=== PATIENT | male | born 1945 | race Two or more races ===

== ENCOUNTER 2019-06-18 02:11 | Inpatient (IN) | payer OTHER ==
[~2019-06-18] VITALS: Ht 165.1 cm; Wt 72.7 kg
[~2019-06-18 02:11] MED LIST: GABA300C OR; GLIP5TAB12 PO; LACT10SO3 PO; LEVE750T15 PO; LORA1TAB23 PO; METF-916 PO; PHEN100C70 OR
[2019-06-18] MEDS ORDERED: SODIUM CHLORIDE 0.9% 3,000 ML IV ONE (02:30)
[2019-06-18] MEDS ORDERED: ACETAMINOPHEN 325 MG TAB PO ONE (02:45)
[2019-06-18] MEDS ORDERED: ONDANSETRON HCL 4 MG/2 ML VIAL ONE (02:56)
[2019-06-18] MEDS ORDERED: MORPHINE SULFATE 4 MG/ML SYR/VIAL ONE (02:56)
[2019-06-18] MEDS ORDERED: ONDANSETRON HCL 4 MG/2 ML VIAL IV ONE (03:00)
[2019-06-18] MEDS ORDERED: MORPHINE SULF INJ 2 MG/ML SYRINGE 1ML IV ONE (03:00)
[2019-06-18 03:20] LABS: Basophils # (auto) 0 10 ^3/uL (0-0.2); Basophils % (auto) 0.4 % (0.0-2.0); Eosinophils # (auto) 0 10 ^3/uL (0-0.8); Eosinophils % (auto) 0.3 % (0.0-7.0); Hematocrit 47.3 % (41.0-53.0); Lymphocytes # (auto) 1.3 10 ^3/uL (0.4-5.4); Lymphocytes % (auto) 12.7 % (10.0-50.0); Mean Corpuscular Hemoglobin 31.3 pg (28.0-32.0); Mean Corpuscular Hgb Conc. 33.8 g/dL (32.0-36.0); Mean Corpuscular Volume 92.7 fL (80.0-100.0); Monocytes # (auto) 1.3 10 ^3/uL (0-1.3); Monocytes % (auto) 12.8 % (0.0-12.0); Neutrophils # (auto) 7.4 10 ^3/uL (1.6-8.6); Neutrophils % (auto) 73.8 % (37.0-80.0); Nucleated Red Blood Cells % 0.2 %; Platelet Count (auto) 254 10^3/uL (140-450); Red Cell Distribution Width 14.3 % (11.8-14.3)
[2019-06-18 03:36] LABS: Urine Bacteria NONE SEEN /hpf (None Seen); Urine Blood TRACE /uL (Negative); Urine Specific Gravity 1.027 (1.001-1.035); Urine WBC 4 /hpf (0 - 3)
[2019-06-18 03:39] LABS: INR 1.09 (0.9-1.15); Partial Thromboplastin Time 28.2 sec (23.64-32.05)
[2019-06-18 03:40] LABS: Lactic Acid w/Reflex 2.9 mmol/L (0.4-2.0)
[2019-06-18] MEDS ORDERED: levoFLOXacin 750MG 150 ML IV ONE (04:00)
[2019-06-18] MEDS ORDERED: SODIUM CHLORIDE 0.9% 1,000 ML IV SCH (05:23)
[2019-06-18] MEDS ORDERED: NITROGLYCERIN 0.4 MG SL TAB SL PRN (05:30)
[2019-06-18] MEDS ORDERED: MORPHINE SULF INJ 2 MG/ML SYRINGE 1ML IV PRN (05:30)
[2019-06-18] MEDS ORDERED: ACETAMINOPHEN 500 MG TAB PO PRN (05:30)
[2019-06-18] MEDS ORDERED: ALBUTEROL SULF HFA 90MCG INH 200DOSE IN SCH (06:00)
[2019-06-18] MEDS ORDERED: HYDROcodone-ACET 5/325MG TAB ONE (06:12)
[2019-06-18] MEDS ORDERED: HYDROcodone-ACET 5/325MG TAB PO PRN (06:15)
[2019-06-18] MEDS: GABAPENTIN 300 MG CAP PO SCH ×3 (06:17→21:35)
[2019-06-18] MEDS: PHENYTOIN SODIUM 100 MG CAP PO SCH ×3 (06:17→21:34)
--- NOTE | 2019-06-18 07:05 | NUR ---
Telemetry admit from ER KATIUSKA FAITH admitted to Telemetry unit after SBAR received. Patient oriented to MIGUEL ELLER, RN primary RN, unit, room, bed, and unit policies regarding patient care and visiting hours. Patient now on continuous telemetry monitoring, tele box #8 and telemetry reading on arrival to unit is SR. Patient placed on bedside oxygen, weighed by bedscale and encouraged to call if they need something. All questions and concerns addressed, patient verbalized understanding.
[2019-06-18 07:10] VITALS: BP 133/70
[2019-06-18] MEDS: cefTRIAXone 1GM/50ML D5W 50 ML IV SCH (09:50)
[2019-06-18] MEDS: ZINC SULFATE 220mg CAP or TAB PO SCH (09:51)
[2019-06-18] MEDS: levETIRAcetam 500 MG TAB PO SCH ×2 (09:53→21:35)
[2019-06-18] MEDS: ENOXAPARIN SOD 40 MG/0.4 ML SYRINGE SC SCH (09:54)
[2019-06-18] MEDS: CHOLECALCIFEROL (VITD3) 1,000UNIT=25mCg TAB PO SCH (09:54)
[2019-06-18] MEDS ORDERED: ASCORBIC ACID 1,000 MG TAB PO SCH (10:00)
[2019-06-18] MEDS ORDERED: AZITHROMYCIN 500MG/D5WorNS 250ml IV SCH (10:00)
[2019-06-18 11:31] LABS: Amylase 22 U/L (25-115); Lipase 64 U/L (73-393)
[2019-06-18 11:32] LABS: Magnesium 1.8 mg/dL (1.6-2.6)
[2019-06-18 11:43] LABS: Lactate Dehydrogenase 235 U/L (87-241)
[2019-06-18 11:49] LABS: CRP High Sensitivity > 19.0 mg/dL (< 0.3)
[2019-06-18 12:05] LABS: Anion Gap 10 (5-15); Carbon Dioxide 22 mmol/L (21-32); Chloride 98 mmol/L (98-107); Potassium 4.2 mmol/L (3.5-5.1); Sodium 130 mmol/L (136-145)
[2019-06-18 12:06] LABS: Alanine Aminotransferase 68 U/L (16-61); Albumin 2.5 g/dL (3.4-5.0); Alkaline Phosphatase 112 U/L (45-117); Aspartate Aminotransferase 79 U/L (15-37); BUN/Creatinine Ratio 8.7; Bilirubin, Total 0.8 mg/dL (0.2-1.0); Blood Urea Nitrogen 9 mg/dL (7-18); Calcium 7.9 mg/dL (8.5-10.1); GFR African American 92 mL/min; GFR Non-African American 76 mL/min; Total Protein 7.1 g/dL (6.4-8.2)
[2019-06-18 12:11] LABS: Glucose 455 mg/dL (74-106)
--- NOTE | 2019-06-18 12:25 | NUR ---
PAGED DR. SCRUGGS TO NOTIFY OF PATIENTS CRITICAL BLOOD SUGAR OF 455
--- NOTE | 2019-06-18 12:31 | NUR ---
YOBANI FROM LAB AND CALLED CRITICAL BLOOD SUGAR OF 455 WILL NOTIFY
[2019-06-18] MEDS ORDERED: DEXTROSE (50%) 50ML SYRG IV PRN ×2 (12:45→13:30)
[2019-06-18 13:00] VITALS: BP 109/74
--- NOTE | 2019-06-18 13:20 | NUR ---
DR. SCRUGGS CALLED BACK, ORDERS RECEIVED, WILL DOCUMENT AND CARRY OUT
[2019-06-18] MEDS ORDERED: InsuLIN REG 1unit/0.01ml Soln (100units/ml) SC ONE (14:00)
--- NOTE | 2019-06-18 14:00 | NUR ---
ATTEMPTED TO PERFORM MED RECONCILIATION. PATIENT UNABLE TO RECALL ANY MED NAMES. PATIENT DID NOT KNOW DAUGHTERS PHONE NUMBER, PRIMARY RN SAMANTHA UNAWARE OF DAUGHTER PHONE NUMBER. UNABLE TO TO COMPLETE MED REC AT THIS TIME. WILL INFORM PRIMARY RN
--- NOTE | 2019-06-18 14:48 | NUR ---
CALLED TO GIVE SKINNY GONZALEZ REPORT SHE IS NOT AVAILABLE WILL CALL BACK
[2019-06-18] MEDS ORDERED: IODIXANOL 320MG/ML 100ML BTL IV ONE (15:36)
--- NOTE | 2019-06-18 15:40 | NUR ---
GAVE COMPLETE SBAR TO SKINNY GONZALEZ TO TRANSFER CARE.
--- NOTE | 2019-06-18 15:54 | NUR ---
[employer] TRANSPORTED PATIENT TO ROOM 212 B, PATIENT HAS NO SOB, OR PAIN NOTED AT THIS TIME.
--- NOTE | 2019-06-18 16:05 | NUR ---
Received Patient Assumed care patient currently in bed. No tele monitor present Heart center notified and tele box has been requested. No pain reported at this moment.
[2019-06-18 17:00] VITALS: BP 99/59
[2019-06-18] MEDS ORDERED: ACCU-CHEK COMFORT CURVE STRIP VI SCH (17:00)
[2019-06-18] MEDS: ACCU-CHEK COMFORT CURVE STRIP VI SCH ×2 (17:00→22:13)
[2019-06-18] MEDS: InsuLIN REG 1unit/0.01ml Soln (100units/ml) SC SCH (17:00)
[2019-06-18] MEDS ORDERED: InsuLIN REG 1unit/0.01ml Soln (100units/ml) SC SCH ×2 (17:00→22:00)
--- NOTE | 2019-06-18 17:00 | NUR ---
awaiting telebox from monitor center
--- NOTE | 2019-06-18 17:50 | NUR ---
Patient off unit down to radiology
--- NOTE | 2019-06-18 18:00 | NUR ---
tele box # 30 received.
--- NOTE | 2019-06-18 19:10 | NUR ---
Received report from the Day Shift RN Cristin. Pt. in bed resting, alert, awake, oriented x 2 , forgetful due to the history of brain tumor. Pt. resting calm and quiet Pt. was a transfer pt. from the [facility]. Tele Box # 30 will be placed/started on his chest.
--- NOTE | 2019-06-18 19:30 | NUR ---
Pt. on Tele Box # 30 , SR @ the 80's @ the monitor. No s/s of chest pain or chest discomfort. Pt. in Room Air, lungs are diminished to clear. No s/s of sob or dyspnea. Breathing regular and unlabored. Pt. resting in bed and keep safe and warm. Call-light within reach. Bed alarms on with the bed locked in low position.
--- NOTE | 2019-06-18 19:49 | NUR ---
Pt. SR @ 87 with PVC's @ the Tele # 30. Pt. denies chest pain and denies chest discomfort. No verbalization of pain and pt. is calm and resting in bed. Pt. can ambulate to the BR with min. to mod. assist due to unsteady gait.
--- NOTE | 2019-06-18 20:00 | NUR ---
Assessment done and completed.
--- NOTE | 2019-06-18 20:30 | NUR ---
Pt. provided assistance to the BR, unsteady with gait and generally weak. BM x 1 diarrhea look stool. Washed and cleansed by the nsg. staff and returned to the bed safely. Keep pt. clean, dry and safe in bed. Bed alarms on. F/C placed below the bed draining yellow sandhya urine.
--- NOTE | 2019-06-18 21:34 | NUR ---
Due meds. given/administered to the pt. Pt. provided explanation to the use/benefits of the meds. as scheduled @ around this time. Pt. verbalized partial understanding and will reenforce health teachings during medication time q shift.
[2019-06-18 22:00] VITALS: BP 126/77
[2019-06-18] MEDS ORDERED: hydrOXYchloroQUINE SULFATE 200 MG TAB PO SCH (22:00)
--- NOTE | 2019-06-18 22:11 | NUR ---
Accucheck taken with result of BS = 282. Pt. made aware of the result.
--- NOTE | 2019-06-18 22:19 | NUR ---
Pt. given 6 units of Regular Human Insulin SQ @ the [facility] for BS = 282 - see Emar.
--- NOTE | 2019-06-18 22:28 | NUR ---
Pt. given [place] 1 tab. for moderate abdominal pain, aching and hurting about 6/10 scale. Pt. provided psychological support.
--- NOTE | 2019-06-18 23:28 | NUR ---
Pt. comfortable @ this time with mild facial grimacing about 2/10 pain scale, tolerable now. Kept. pt. safe and nursing home director bed. Call-light within reach. Pt. still SR @the monitor Tele # 30 @ the 70's to 80's.
--- NOTE | 2019-06-19 02:00 | NUR ---
Pt. calm and sleeping well. Slept undisturbed. SR @ the monitor.
--- NOTE | 2019-06-19 04:00 | NUR ---
Pt. still sleeping undisturbed. No s/s of pain or discomfort. SR @ the 80's to 90's @ the monitor # 30.
[2019-06-19 05:00] VITALS: BP 115/69
[2019-06-19] MEDS: PHENYTOIN SODIUM 100 MG CAP PO SCH (06:09)
[2019-06-19] MEDS: GABAPENTIN 300 MG CAP PO SCH (06:10)
[2019-06-19] MEDS: ACCU-CHEK COMFORT CURVE STRIP VI SCH ×2 (06:13→12:10)
--- NOTE | 2019-06-19 06:13 | NUR ---
Accucheck taken with result of BS = 194 .
[2019-06-19] MEDS: InsuLIN REG 1unit/0.01ml Soln (100units/ml) SC SCH ×2 (06:48→12:31)
--- NOTE | 2019-06-19 06:48 | NUR ---
Pt. given 3 units of Regular Human Insulin per s/s SQ @ the [facility] for BS = 194 - see Emar.
--- NOTE | 2019-06-19 07:15 | NUR ---
SHIFT REPORT RECEIVED SHIFT REPORT FROM NUVIA GONZALEZ. PATIENT RESTING IN BED AWAKE, NO COMPLAINTS OF PAIN, CP, OR SOB.
[2019-06-19 09:00] VITALS: BP 108/70
[2019-06-19] MEDS: ENOXAPARIN SOD 40 MG/0.4 ML SYRINGE SC SCH (09:08)
[2019-06-19] MEDS: cefTRIAXone 1GM/50ML D5W 50 ML IV SCH (09:08)
[2019-06-19] MEDS: CHOLECALCIFEROL (VITD3) 1,000UNIT=25mCg TAB PO SCH (09:09)
[2019-06-19] MEDS: ZINC SULFATE 220mg CAP or TAB PO SCH (09:09)
[2019-06-19] MEDS: levETIRAcetam 500 MG TAB PO SCH (09:10)
[2019-06-19] MEDS ORDERED: AZITHROMYCIN 500MG/ 250ML 250 ML IV SCH (10:00)
[2019-06-19] MEDS ORDERED: hydrOXYchloroQUINE SULFATE 200 MG TAB PO SCH (10:00)
[2019-06-19] MEDS ORDERED: LORazepam 0.5 MG TAB PO ONE ×2 (11:45→13:00)
[2019-06-19] MEDS ORDERED: ASCORBIC ACID 500 MG TAB PO SCH (11:47)
--- NOTE | 2019-06-19 12:22 | NUR ---
MANUAL HEART RATE MANUAL HEART RATE 105BPM, IRREGULAR RHYTHM BY APICAL PULSE.
[2019-06-19 12:53] VITALS: BP 111/55
--- NOTE | 2019-06-19 13:21 | NUR ---
PATIENTS HEART RATE AFTER SECOND DOSE/ADMISTATION OF ATIVAN 0.5MG, HEART RATE IS RETURNING TO 110'S, PATIENT DOES NOT HAVE C/O CHEST PAIN OR SOB. WILL START DISCHARGE. DR. CORTES WILL BE NOTIFIED.
--- NOTE | 2019-06-19 14:05 | NUR ---
Velez catheter dc'd Order to discontinue velez catheter. Velez dc'd with clean technique following deflation of balloon. Patient tolerated well with no complaints of pain. Continue care.
--- NOTE | 2019-06-19 14:05 | NUR ---
IV removal IV DC'd with clean sterile technique, catheter fully intact. Pressure dressing applied to site. Patient tolerated well. NOTE: RIGHT WRIST AND RIGHT FINGER PIV REMOVAL
--- NOTE | 2019-06-19 14:30 | NUR ---
Discharge instructions given as ordered. Encourage to follow up with PMD as instructed. All questions and concerns addressed. Patient verbalized understanding. Medication reconciliation form completed and copy given to patient. No Home medications held in Pharmacy. IV removed with catheter intact, pressure dressing applied, velez catheter removed. Telemetry unit returned to ICU. Patient taken to vehicle via wheelchair with all personal belongings, accompanied by staff and family member. No distress noted at time of departure.
== END 2019-06-19 14:40 | disposition home or self-care (01) | DRG 193 ==
LOC: EDBD 02:11 → ER 02:13 → TELE 02:14 → TELE-EAST 06:30 → TELE-CENTR 14:09
PROVIDERS: ADMIT Nurse Practitioner; ATTEND Internal Medicine
DX: J18.9 Pneumonia, unspecified organism (principal); J96.91 Respiratory failure, unspecified with hypoxia; N39.0 Urinary tract infection, site not specified; J90 Pleural effusion, not elsewhere classified; J44.0 Chronic obstructive pulmonary disease with (acute) lower respiratory infection; R10.9 Unspecified abdominal pain; I10 Essential (primary) hypertension; K74.60 Unspecified cirrhosis of liver; E11.9 Type 2 diabetes mellitus without complications; K59.00 Constipation, unspecified; K76.9 Liver disease, unspecified; Z79.84 Long term (current) use of oral hypoglycemic drugs; Z03.818 Encounter for observation for suspected exposure to other biological agents ruled out
CPT/HCPCS: 36415; 71045; 71260; 74177; 80053; 81001; 82150; 82728; 82962; 83605; 83615; 83690; 83735; 83880; 84443; 84484; 85025; 85379; 85610; 85730; 86141; 87040; 87070; 87804; 87880; 93005; G0378; J0696; J1815; J1956; J2405; Q9967